=== PATIENT | male | born 2000 | race Caucasian/White ===

== ENCOUNTER 2024-12-07 23:48 | Emergency (ER) | payer OTHER ==
[2024-12-08] MEDS ORDERED: Acetaminophen 500 MG TAB ONE (00:23)
[2024-12-08 01:06] LABS: #Basophils 0.03 10x3/uL (0.0-0.2); #Eosinophils 0.11 10x3/uL (0.0-0.5); #Monocytes 0.48 10x3/uL (0.0-1.1); #Neutrophils 4.02 10x3/uL (1.5-8.4); %Basophils 0.4 % (0.0-2.0); %Eosinophils 1.6 % (0.0-6.0); %Lymphocytes 31.5 % (18.0-47.0); %Monocytes 7.1 % (0.0-10.0); %Neutrophils 59.3 % (40.0-75.0); Hematocrit 43.7 % (38.8-50.0); Hemoglobin 15.1 g/dL (13.5-17.5); Mean Corpuscular Hemoglobin 31.3 pg (27.0-33.0); Mean Corpuscular Volume 90.5 fL (81.2-95.1); Platelet Count 204 10x3/uL (150-450); Red Blood Cell (RBC) Count 4.83 10x6/uL (4.32-5.72); White Blood Cell (WBC) Count 6.79 10x3/uL (3.5-10.5)
[2024-12-08 01:34] LABS: ALT (SGPT) 27 U/L (Less than 45); AST (SGOT) 37 U/L (11-34); Albumin 4.8 g/dL (3.1-4.5); Alkaline Phosphatase 67 U/L (40-110); Anion Gap 13 mmol/L (10-20); BUN (Urea Nitrogen) 14 mg/dL (8.9-20.6); Bilirubin, Total 1.5 mg/dL (0.3-1.2); Calc. Creatinine Clearance 0 mL/min (70-130); Calcium 10.0 mg/dL (7.8-10.44); Carbon Dioxide 29 mmol/L (22-29); Chloride 102 mmol/L (98-107); Globulin 2.8 g/dL (2.4-3.5); Glucose 84 mg/dL (70-105); Magnesium 2.2 mg/dL (1.6-2.6); Potassium 4.1 mmol/L (3.5-5.1); Sodium 140 mmol/L (136-145)
[2024-12-08 01:40] LABS: Troponin I Less than 0.010 ng/mL (< 0.028)
[2024-12-08] MEDS ORDERED: Iopamidol 300 61% 100 ML VIAL FS ONE (12:23)
== END 2024-12-08 03:25 | disposition home or self-care (01) ==
LOC: CSHERS 23:48
DX: S06.0X0A Concussion without loss of consciousness, initial encounter (principal); S42.032A Displaced fracture of lateral end of left clavicle, initial encounter for closed fracture; V89.2XXA Person injured in unspecified motor-vehicle accident, traffic, initial encounter
CPT/HCPCS: 70450; 71260; 74177; 80053; 83735; 84484; 85025; 93005; Q9967